=== PATIENT | male | born 1995 | race Caucasian/White ===

== ENCOUNTER 2019-03-21 02:07 | Emergency (ER) | payer OTHER ==
[~2019-03-21] VITALS: Ht 180.3 cm; Wt 77.1 kg
--- NOTE | 2019-03-21 02:23 | NUR ---
PER DR RICCI, TRAUMA CALLED OFF AT 0223. IN ROOM
[2019-03-21] MEDS ORDERED: HYDROcodone/acetaminophen 10/325mg tab PO ONE (02:25)
[2019-03-21] MEDS ORDERED: ondansetron 4mg rapidly disintigrating tab PO ONE (02:25)
[2019-03-21] MEDS ORDERED: HYDR-3965 PO (02:52)
[2019-03-21] MEDS ORDERED: ONDA4TAB6 PO (02:52)
--- NOTE | 2019-03-21 03:13 | NUR ---
SOWMYA RICCI MADE AWARE OF PT CONTINED 10/10 PAIN. RECEIVED VERBAL ORDER FOR 400MG PO MOTRIN X1 DOSE NOW.
[2019-03-21] MEDS ORDERED: ibuprofen tablet 400 MG TABLET PO ONE (03:15)
[2019-03-21 03:47] VITALS: BP 141/110
== END 2019-03-21 03:49 | disposition home or self-care (01) ==
LOC: ER 02:08
DX: S42.002A Fracture of unspecified part of left clavicle, initial encounter for closed fracture (principal); S60.811A Abrasion of right wrist, initial encounter; Z79.899 Other long term (current) drug therapy; Y92.488 Other paved roadways as the place of occurrence of the external cause; V87.7XXA Person injured in collision between other specified motor vehicles (traffic), initial encounter; Y93.89 Activity, other specified; Y99.8 Other external cause status
CPT/HCPCS: 29105; 71045; 73000; 73030; 99284